=== PATIENT | male | born 1960 | race Caucasian/White ===

== ENCOUNTER 2019-04-01 21:24 | Emergency (ER) | payer MEDICAID ==
[~2019-04-01] VITALS: Ht 170.2 cm; Wt 105.0 kg
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
--- NOTE | 2019-04-01 22:43 | NUR ---
AWAITING CT RESULTS. ASLEEP IN BED, BLANKET APPLIED FOR PT COMFORT. NAD NOTED AT THIS TIME.
[2019-04-01 22:59] VITALS: BP 109/55
--- NOTE | 2019-04-01 23:00 | NUR ---
PT LAYING BACK IN BED, NAD NOTED AT THIS TIME. READY FOR DC.
== END 2019-04-01 23:15 | disposition home or self-care (01) ==
LOC: ED 23:00
DX: S16.1XXA Strain of muscle, fascia and tendon at neck level, initial encounter (principal); V09.9XXA Pedestrian injured in unspecified transport accident, initial encounter; Y93.89 Activity, other specified; Y92.89 Other specified places as the place of occurrence of the external cause; Y99.8 Other external cause status
CPT/HCPCS: 72125; 99284